=== PATIENT | male | born 1985 | race African-American/Black ===

== ENCOUNTER 2018-10-17 18:26 | Emergency (ER) | payer OTHER ==
[2018-10-17] MEDS ORDERED: Ibuprofen TAB* 800 MG PO ONE (20:37)
--- NOTE | 2018-10-17 21:04 | ED ---
Adult Trauma - HPI Summary HPI Summary: Patient from intermediate complains of head pain, neck pain and low back pain radiating to left foot status post mechanical fall in the shower today. Patient states he slipped and fell on his back and hit his head. Denies LOC, vision change, N/V, AMS, any other pain injury or symptoms. Patient is ambulatory. Denies medical history. - History of Current Complaint Chief Complaint: EDFall Stated Complaint: FALL/BACK PAIN PER EMS Time Seen by Provider: 10/17/18 18:48 Hx Obtained From: Patient Mechanism of Injury: Fall Ambulatory at the Scene: Yes Loss of Consciousness: no loss of consciousness Onset Severity: Moderate Current Severity: Severe Pain Intensity: 10 Pain Scale Used: 0-10 Numeric Location: Head, Neck, Back Character: Aching Aggravating Factor(s): Movement Alleviating Factor(s): Rest Associated Signs & Symptoms: Positive: Negative - Allergy/Home Medications Allergies/Adverse Reactions: Allergies Allergy/AdvReac Type Severity Reaction Status Date / Time No Known Allergies Allergy Verified 10/17/18 18:38 PMH/Surg Hx/FS Hx/Imm Hx Endocrine/Hematology History: Denies: Hx Anticoagulant Therapy Cardiovascular History: Denies: Hx Pacemaker/ICD History: Denies: Hx Dialysis Sensory History: Denies: Hx Legally Blind Opthamlomology History: Denies: Hx Eye Prosthesis EENT History: Denies: Hx Deafness Neurological History: Denies: Hx Dementia Infectious Disease History: No Infectious Disease History: Denies: Traveled Outside the [place] in Last 30 Days - Family History Known Family History: Positive: Non-Contributory - Social History Alcohol Use: None Substance Use Type: Reports: None Smoking Status (MU): Light Every Day Tobacco Smoker Review of Systems Constitutional: Negative Eyes: Negative ENT: Negative Cardiovascular: Negative Respiratory: Negative Gastrointestinal: Negative Genitourinary: Negative Musculoskeletal: Other Skin: Negative Positive: Headache Psychological: Normal All Other Systems Reviewed And Are Negative: Yes Physical Exam - Summary Physical Exam Summary: Neuro exam normal. Bony point tenderness along C-spine and L-spine, no bony point tenderness along T-spine. No pain with palpation of chest, abdomen. Patient moves all 4 extremities within limits of cuffs. PMS intact distally on all 4 extremities. No trauma noted to face, mouth, head. Full range of motion of jaw and neck. Triage Information Reviewed: Yes Vital Signs On Initial Exam: Initial Vitals Pulse BP Pulse Ox 66 156/95 100 10/17/18 18:33 10/17/18 18:33 10/17/18 18:33 Vital Signs Reviewed: Yes Appearance: Positive: Well-Appearing Skin: Positive: Warm Head/Face: Positive: Normal Head/Face Inspection Eyes: Positive: Normal ENT: Positive: Normal ENT inspection Dental: Negative: Dental Fracture @, Bleeding Neck: Positive: Supple Respiratory/Lung Sounds: Positive: Clear to Auscultation Cardiovascular: Positive: Normal Abdomen Description: Positive: Nontender Musculoskeletal: Positive: Normal Neurological: Positive: Normal Psychiatric: Positive: Normal AVPU Assessment: Alert - [place] Coma Scale Best Eye Response: 4 - Spontaneous Best Motor Response: 6 - Obeys Commands Best Verbal Response: 5 - Oriented Coma Scale Total: 15 Diagnostics - Vital Signs Vital Signs Temp Pulse Resp BP Pulse Ox 10/17/18 18:34 97.4 F 66 19 142/72 100 10/17/18 18:33 66 156/95 100 - Laboratory Lab Statement: Any lab studies that have been ordered have been reviewed, and results considered in the medical decision making process. Adult Trauma Course/Dx - Course Course Of Treatment: Patient from intermediate complains of head pain, neck pain and low back pain radiating to left foot status post mechanical fall in the shower today. Patient states he slipped and fell on his back and hit his head. Denies LOC, vision change, N/V, AMS, any other pain injury or symptoms. Patient is ambulatory. Denies medical history. Vital signs within normal limits. CT cervical spine unremarkable. X-ray lumbar spine unremarkable. - Diagnoses Provider Diagnoses: Fall, Neck pain, Back pain due to injury Discharge - Sign-Out/Discharge Documenting (check all that apply): Patient Departure Patient Received Moderate/Deep Sedation with Procedure: No - Discharge Plan Condition: Stable Disposition: HOME Patient Education Materials: Acute Low Back Pain (ED), Acute Neck Pain (ED) Referrals: Radha TABARES,Dhaval Ramirez [Primary Care Provider] - Additional Instructions: Alternate ibuprofen 600 mg with Tylenol 650 mg every 3 hours for 3 days if needed for pain. Return to the ED for any new or worsening symptoms. - Billing Disposition and Condition Condition: STABLE Disposition: Home - Attestation Statements Provider Attestation: I am administratively signing this document. I was available for consultation for this patient. I did not evaluate the patient, did not have a doctor/patient relationship with the patient, or participate in any medical decision making or disposition decisions unless I am specifically named in the chart as having consulted on the patient. If I have consulted on the patient, please see my own ED note on the patient encounter. Amarjit Duron MD
[2018-10-17 21:22] VITALS: BP 157/85
== END 2018-10-17 21:21 | disposition home or self-care (01) ==
LOC: ED 18:26
DX: M54.2 Cervicalgia (principal); M54.9 Dorsalgia, unspecified; W18.2XXA Fall in (into) shower or empty bathtub, initial encounter; Y93.E1 Activity, personal bathing and showering; Y92.002 Bathroom of unspecified non-institutional (private) residence as the place of occurrence of the external cause; F17.210 Nicotine dependence, cigarettes, uncomplicated
CPT/HCPCS: 72110; 72125; 99282; A9270-GY